=== PATIENT | female | born 1960 | race Hispanic/Latino ===

== ENCOUNTER 2021-11-28 17:31 | Observation (INO) | payer OTHER ==
[~2021-11-28] VITALS: Ht 152.4 cm; Wt 68.9 kg
[2021-11-28 18:05] LABS: APPEARANCE,URINE Cloudy (CLEAR); BILIRUBIN,URINE Negative (NEGATIVE); COLOR,URINE Yellow (YELLOW); GLUCOSE, URINE (UA) Negative (NEGATIVE); KETONES,URINE Negative (NEGATIVE); LEUKOCYTE ESTERASE ,URINE Trace (NEGATIVE); NITRATE,URINE Negative (NEGATIVE); OCCULT BLOOD,URINE Negative (NEGATIVE); PROTEIN,URINE Negative (NEGATIVE)
[2021-11-28 18:13] LABS: BASOPHILS % (AUTO) 0.5 % (0.0-5.0); EOSINOPHILS % (AUTO) 1.6 % (0.0-8.0); HEMATOCRIT 39.7 % (36-48); LYMPHOCYTES % (AUTO) 27.2 % (21.0-51.0); MEAN CORPUSCULAR HEMOGLOBIN 27.6 pg (27.0-33.0); MEAN CORPUSCULAR HGB CONC 32.5 g/dL (32.0-36.0); MEAN CORPUSCULAR VOLUME 84.8 fL (79-99); MONOCYTES % (AUTO) 5.9 % (3.0-13.0); NEUTROPHILS % (AUTO) 64.2 % (40.0-77.0); PLATELET COUNT (AUTO) 238 K/uL (130-400); RED BLOOD CELL COUNT(AUTO) 4.68 MIL/uL (4.00-5.50); RED CELL DISTRIBUTION WIDTH 13.7 % (11.0-15.5); WHITE BLOOD COUNT (AUTO) 6.2 K/uL (4.8-10.8)
[2021-11-28 18:21] LABS: BACTERIA,URINE Rare /HPF (None Seen); RBC,URINE 0-1 /HPF (0-1); SQUAMOUS EPITHELIAL CELL,UR Rare /HPF (0-2); WBC,URINE 0-1 /HPF (0-1)
[2021-11-28 18:24] LABS: CREATININE 1.1 mg/dL (0.5-1.5)
[2021-11-28 18:31] LABS: ALBUMIN 3.8 g/dL (3.5-5.0); BILIRUBIN,TOTAL 0.3 mg/dL (0.2-1.0); TOTAL PROTEIN, SERUM 7.4 g/dL (6.0-8.3)
[2021-11-28] MEDS ORDERED: NITROGLYCERIN 1GM OINT 1 INCH/1GM TD ONE (19:30)
[2021-11-28] MEDS ORDERED: ASPIRIN 81MG CHEW TAB PO ONE (19:30)
[2021-11-28] MEDS ORDERED: ONDANSETRON 4MG INJ IV PRN (21:00)
[2021-11-28] MEDS ORDERED: ACETAMINOPHEN 325 MG TAB PO PRN (21:00)
[2021-11-28] MEDS: NITROGLYCERIN 1GM OINT 1 INCH/1GM TD SCH (21:00)
[2021-11-28] MEDS ORDERED: CLONIDINE HCL 0.1 MG TABLET PO PRN (21:00)
[2021-11-28] MEDS ORDERED: ATOR10TA69 PO (21:28)
[2021-11-28] MEDS ORDERED: AEC81 PO (21:28)
[2021-11-28] MEDS ORDERED: SITA100T12 PO (21:28)
[2021-11-28] MEDS ORDERED: METF-446 PO (21:28)
[2021-11-28] MEDS ORDERED: LOSA25TA41 PO (21:28)
[2021-11-28] MEDS ORDERED: INSLAN SQ (21:28)
[2021-11-28 23:30] VITALS: BP 156/97
[2021-11-29 04:00] VITALS: BP 136/65
[2021-11-29 05:10] LABS: BASOPHILS % (AUTO) 0.7 % (0.0-5.0); EOSINOPHILS % (AUTO) 1.8 % (0.0-8.0); HEMATOCRIT 35.7 % (36-48); LYMPHOCYTES % (AUTO) 35.9 % (21.0-51.0); MEAN CORPUSCULAR HEMOGLOBIN 28.3 pg (27.0-33.0); MEAN CORPUSCULAR HGB CONC 33.3 g/dL (32.0-36.0); MONOCYTES % (AUTO) 9.3 % (3.0-13.0); NEUTROPHILS % (AUTO) 51.9 % (40.0-77.0); PLATELET COUNT (AUTO) 211 K/uL (130-400); RED CELL DISTRIBUTION WIDTH 13.7 % (11.0-15.5); WHITE BLOOD COUNT (AUTO) 5.7 K/uL (4.8-10.8)
[2021-11-29 05:33] LABS: CREATININE 0.9 mg/dL (0.5-1.5); HEMOGLOBIN A1C 9.8 % (4.0-6.0); MAGNESIUM 1.6 mg/dL (1.80-2.40); PHOSPHORUS 4.1 mg/dL (2.5-4.9); POTASSIUM 3.9 mmol/L (3.5-5.1)
[2021-11-29] MEDS: NITROGLYCERIN 1GM OINT 1 INCH/1GM TD SCH (05:48)
[2021-11-29] MEDS: INSULIN HUMULIN R 100 UNIT/ML 3ML SQ SCH ×2 (07:30→12:49)
[2021-11-29 08:00] VITALS: BP 138/88
[2021-11-29] MEDS ORDERED: ENOXAPARIN SODIUM 40 MG/0.4 ML SYRINGE SQ SCH (09:00)
[2021-11-29] MEDS ORDERED: ASPIRIN 81MG CHEW TAB PO SCH (09:00)
[2021-11-29] MEDS ORDERED: FAMOTIDINE 20MG TAB PO SCH (09:00)
[2021-11-29] MEDS ORDERED: MAGNESIUM 2GM PREMIX 50ML 50 ML IV PRN (12:00)
[2021-11-29] MEDS ORDERED: LINAGLIPTIN 5 MG TABLET PO SCH (12:23)
[2021-11-29] MEDS ORDERED: METFORMIN HCL 500 MG TABLET PO SCH (12:25)
[2021-11-29 12:30] VITALS: BP 121/80
[2021-11-29] MEDS ORDERED: INSULIN GLARGINE 100 UNITS/ML 10 ML VIAL SQ SCH (12:30)
[2021-11-29] MEDS ORDERED: FLUCONAZOLE 100 MG TAB PO SCH (12:30)
[2021-11-29] MEDS ORDERED: LOSARTAN 50 MG TABLET PO SCH (12:30)
[2021-11-29] MEDS ORDERED: LIRA0.6P2 SQ (12:46)
[2021-11-29] MEDS ORDERED: LOSA1TAB37 PO (12:46)
[2021-11-29] MEDS ORDERED: METR-172 PO (12:46)
[2021-11-29] MEDS ORDERED: ATOR40TA69 PO (12:46)
[2021-11-29] MEDS ORDERED: METRONIDAZOLE 500 MG TABLET PO SCH (21:00)
[2021-11-30] MEDS ORDERED: HYDROCHLOROTHIAZIDE 25 MG TABLET PO SCH (09:00)
== END 2021-11-29 16:18 | disposition home or self-care (01) ==
LOC: EDH 17:31 → EDHIP 20:33 → INTOOBSV 20:33 → 2DH 11-29 00:09
PROVIDERS: ADMIT Internal Medicine; ATTEND Internal Medicine
DX: R07.89 Other chest pain (principal); I16.0 Hypertensive urgency; I20.0 Unstable angina; E11.9 Type 2 diabetes mellitus without complications; I10 Essential (primary) hypertension; E78.5 Hyperlipidemia, unspecified; E78.00 Pure hypercholesterolemia, unspecified; F41.9 Anxiety disorder, unspecified; Z90.710 Acquired absence of both cervix and uterus; Z79.899 Other long term (current) drug therapy; Z87.891 Personal history of nicotine dependence; Z63.4 Disappearance and death of family member
CPT/HCPCS: 36415 ×2; 71045; 80048; 80053; 81001; 82948 ×3; 83036; 83735; 84100; 84484 ×3; 85025 ×2; 93005; 96365; 96366; 96372 ×2; 99285; G0378 ×19; J1650; J1815; J3475